=== PATIENT | female | born 1995 | race Caucasian/White ===

== ENCOUNTER 2020-02-27 01:03 | Emergency (ER) | payer OTHER ==
--- NOTE | 2020-02-27 01:07 | ED Physician Documentation ---
History of Present Illness - Stated complaint Stated Complaint: ABD PX - History obtained from History obtained from: Patient (Patient is a 24-year-old female with a chief complaint of right flank pain and some dysuria and hematuria and she thinks she has a kidney stone denies any other complaints.) Review of Systems Constitutional: reports: Reviewed and negative Eyes: reports: Reviewed and negative Ears: reports: Reviewed and negative Nose: reports: Reviewed and negative Throat: reports: Reviewed and negative Cardiac: reports: Reviewed and negative Respiratory: reports: Reviewed and negative GI: reports: Reviewed and negative : reports: Dysuria, Frequency, Hematuria Skin: reports: Reviewed and negative Musculoskeletal: reports: Reviewed and negative Neurologic: reports: Reviewed and negative Psychiatric: reports: Reviewed and negative Endocrine: reports: Reviewed and negative Immunocompromised: reports: Reviewed and negative PD PAST MEDICAL HISTORY - Present Medications Home Medications: Ambulatory Orders Medication Instructions Recorded Confirmed Cephalexin [Keflex] 500 mg PO BID 5 Days #10 capsule 02/27/20 Phenazopyridine [Pyridium] 100 mg PO TID PRN #6 tablet 02/27/20 - Allergies Allergies/Adverse Reactions: Allergies Allergy/AdvReac Type Severity Reaction Status Date / Time No Known Drug Allergies Allergy Verified 02/27/20 01:14 PD ED PE NORMAL - Vitals Vital signs reviewed: Yes - General General: Alert and oriented X 3, No acute distress, Well developed/nourished - HEENT HEENT: PERRL - Neck Neck: Supple, no meningeal sign - Cardiac Cardiac: RRR, No murmur, Strong equal pulses - Respiratory Respiratory: No respiratory distress, Clear bilaterally - Abdomen Abdomen: Normal bowel sounds, Soft, Non tender, Non distended, No organomegaly, Other (Suprapubic tenderness to palpation) - Derm Derm: Warm and dry - Extremities Extremities: No deformity - Neuro Neuro: Alert and oriented X 3 - Psych Psych: Normal mood, Normal affect Results - Vitals Vitals: Vital Signs - 24 hr 02/27/20 02/27/20 02/27/20 01:12 02:01 02:28 Temperature 37.2 C 37.1 C Heart Rate 96 88 87 Respiratory 18 15 15 Rate Blood Pressure 135/68 H 130/78 122/74 O2 Saturation 100 100 100 02/27/20 03:25 Temperature 36.6 C Heart Rate 81 Respiratory 18 Rate Blood Pressure 112/57 L O2 Saturation 100 Oxygen O2 Source Room air - Labs Labs: Laboratory Tests 02/27/20 02/27/20 02/27/20 01:14 01:38 01:38 WBC 14.4 H RBC 4.34 Hgb 13.4 Hct 38.6 MCV 88.9 MCH 30.9 MCHC 34.7 RDW 12.3 Plt Count 288 MPV 10.7 Neut # (Auto) 10.7 H Lymph # (Auto) 2.3 [facility] # (Auto) 1.0 Eos # (Auto) 0.2 Baso # (Auto) 0.1 Absolute Nucleated RBC 0.00 Nucleated RBC % 0.0 PT 11.1 INR 1.0 APTT 27.0 Sodium Potassium Chloride Carbon Dioxide Anion Gap BUN Creatinine Estimated GFR (MDRD) Glucose Lactic Acid Calcium Total Bilirubin AST ALT Alkaline Phosphatase Total Protein Albumin Globulin Albumin/Globulin Ratio Lipase Urine Color YELLOW Urine Clarity CLEAR Urine pH 7.0 Ur Specific [place] 1.020 Urine Protein 100 H Urine Glucose (UA) NEGATIVE Urine Ketones NEGATIVE Urine Occult Blood LARGE H Urine Nitrite NEGATIVE Urine Bilirubin NEGATIVE Urine Urobilinogen 0.2 (NORMAL) Ur Leukocyte Esterase TRACE H Urine RBC 11-25 H Urine WBC 4-5 Ur Squamous Epith Cells RARE Squamous Urine Bacteria Rare Ur Microscopic Review INDICATED Urine Culture Comments INDICATED Urine HCG, Qual NEGATIVE 02/27/20 02/27/20 01:38 01:38 WBC RBC Hgb Hct MCV MCH MCHC RDW Plt Count MPV Neut # (Auto) Lymph # (Auto) [facility] # (Auto) Eos # (Auto) Baso # (Auto) Absolute Nucleated RBC Nucleated RBC % PT INR APTT Sodium 136 Potassium 3.8 Chloride 103 Carbon Dioxide 23 Anion Gap 10.0 BUN 12 Creatinine 0.6 Estimated GFR (MDRD) 123 Glucose 122 H Lactic Acid 1.1 Calcium 8.8 Total Bilirubin 0.4 AST 15 ALT 18 Alkaline Phosphatase 80 Total Protein 7.2 Albumin 4.4 Globulin 2.8 Albumin/Globulin Ratio 1.6 Lipase 24 Urine Color Urine Clarity Urine pH Ur Specific [place] Urine Protein Urine Glucose (UA) Urine Ketones Urine Occult Blood Urine Nitrite Urine Bilirubin Urine Urobilinogen Ur Leukocyte Esterase Urine RBC Urine WBC Ur Squamous Epith Cells Urine Bacteria Ur Microscopic Review Urine Culture Comments Urine HCG, Qual PD MEDICAL DECISION MAKING - ED course Complexity details: reviewed results, re-evaluated patient, considered differential (Nephrolithiasis, pyelonephritis, cystitis, appendicitis), d/w patient, d/w family, other (ct shows cystitis, no signs of appendicits or nephrolithiasis. will treat with kefle and phenazopyridine.) Departure - Departure Disposition: 01 Home, Self Care Clinical Impression: Cystitis Condition: Stable Instructions: ED Infec Bladder Female Ch Follow-Up: your, doctor [Other] - Tomorrow Prescriptions: Cephalexin [Keflex] 500 mg PO BID 5 Days #10 capsule Phenazopyridine [Pyridium] 100 mg PO TID PRN #6 tablet PRN Reason: Bladder Spasms Comments: Hydrate well, take Keflex and phenazopyridine as directed. Follow-up with your primary care provider this week. Discharge Date/Time: 02/27/20 03:32
[2020-02-27] MEDS ORDERED: ONDANSETRON 4 MG/2 ML VIAL IVP STA (01:21)
[2020-02-27] MEDS ORDERED: MORPHINE 2 MG/ML CARPUJECT IVP STA (01:21)
[2020-02-27] MEDS ORDERED: SODIUM CHLORIDE 0.9% 1,000 ML IV STA (01:21)
[2020-02-27 01:30] LABS: BILIRUBIN,URINE NEGATIVE (NEGATIVE); GLUCOSE, URINE (UA) NEGATIVE (NEGATIVE); KETONES,URINE (UA) NEGATIVE (NEGATIVE); LEUKOCYTE ESTERASE, URINE TRACE (NEGATIVE); NITRITE,URINE NEGATIVE (NEGATIVE); OCCULT BLOOD,URINE LARGE (NEGATIVE); PROTEIN,URINE 100 mg/dL (NEGATIVE); UROBILINOGEN,URINE 0.2 (NORMAL) E.U./dL (NORMAL)
[2020-02-27 01:45] LABS: CLARITY,URINE CLEAR (CLEAR); HCG UR QUAL NEGATIVE
[2020-02-27 01:46] LABS: BASOPHILS # (AUTO) 0.1 10^3/uL (0.0-0.1); BASOPHILS % (AUTO) 0.4 %; EOSINOPHILS # (AUTO) 0.2 10^3/uL (0.0-0.7); EOSINOPHILS % (AUTO) 1.5 %; HGB - HEMOGLOBIN 13.4 g/dL (12.0-16.0); LYMPHOCYTES # (AUTO) 2.3 10^3/uL (1.5-3.5); LYMPHOCYTES % (AUTO) 16.1 %; MEAN CORPUSCULAR HEMOGLOBIN 30.9 pg (27.0-31.0); MEAN CORPUSCULAR HGB CONC 34.7 g/dL (32.0-36.0); MEAN CORPUSCULAR VOLUME 88.9 fL (81.0-99.0); MEAN PLATELET VOLUME 10.7 fL (7.9-10.8); NEUTROPHILS # (AUTO) 10.7 10^3/uL (1.5-6.6); NEUTROPHILS % (AUTO) 74.4 %; PLT - PLATELET COUNT 288 10^3/uL (130-450); RED BLOOD COUNT 4.34 10^6/uL (4.20-5.40); RED CELL DISTRIBUTION WIDTH 12.3 % (12.0-15.0); WHITE BLOOD COUNT 14.4 x10^3/uL (4.8-10.8)
[2020-02-27 01:51] LABS: BACTERIA,URINE Rare /HPF (None Seen); SQUAMOUS EPITHELIAL CELL,UR RARE Squamous (<= Few)
[2020-02-27 01:53] LABS: PT - PROTHROMBIN TIME 11.1 secs (9.9-12.6)
[2020-02-27 01:59] LABS: ALBUMIN 4.4 g/dL (3.2-5.5); ALBUMIN/GLOBULIN RATIO 1.6 (1.0-2.2); BILIRUBIN,TOTAL 0.4 mg/dL (0.2-1.0); CALCIUM 8.8 mg/dL (8.5-10.3); CREATININE 0.6 mg/dL (0.4-1.0); TOTAL PROTEIN 7.2 g/dL (6.7-8.2)
[2020-02-27] MEDS ORDERED: IOVERSOL 320 100 ML VIAL IVP ONE ×2 (02:31→02:54)
[2020-02-27] MEDS ORDERED: cephALEXin 250 MG CAPSULE PO STA (03:14)
[2020-02-27] MEDS ORDERED: PHENAZOPYRIDINE 100 MG TABLET PO STA (03:14)
[2020-02-27 03:35] VITALS: BP 112/57
--- NOTE | 2020-02-27 08:07 | CT Report ---
PROCEDURE: Abdomen/Pelvis W INDICATIONS: RLQ ABD PAIN CONTRAST: IV CONTRAST: Optiray 320 ml: 100 PO CONTRAST: *NO PO CONTRAST TECHNIQUE: After the administration of oral and intravenous contrast, 5 mm thick sections acquired from the diap hragms to the symphysis. 5 mm thick coronal and sagittal reformats were acquired. For radiation dos e reduction, the following was used: automated exposure control, adjustment of mA and/or kV accordin g to patient size. COMPARISON: None. FINDINGS: Image quality: Excellent. ABDOMEN: Lung bases: Lung bases are clear. Heart size is normal. Solid organs: Liver and spleen are normal in size and enhancement. Gallbladder is unremarkable Zackery iary system is non dilated. Pancreas enhances normally. No adrenal nodules. Kidneys demonstrate no rmal size and enhancement, without hydronephrosis. Peritoneum and bowel: Bowel loops demonstrate normal wall thickness and caliber. No free fluid or a ir. Moderate stool without obstruction. Nodes and vessels: No retroperitoneal or mesenteric adenopathy by size criteria. Aorta and inferior vena cava are normal in size. Miscellaneous: No ventral hernias. PELVIS: Genitourinary: Bladder wall is incompletely distended and demonstrates diffuse thickening. There is a 2.0 cm right adnexal low-attenuation focus. Miscellaneous: No inguinal hernias or adenopathy. Bones: No suspicious bony lesions. No vertebral body compression fractures. IMPRESSION: 1. Mild bladder wall thickening possibly secondary to incomplete distention. However, recommend corre lation of potential cystitis which can have a similar imaging appearance. 2. Right adnexal follicle versus cyst. The above findings are concordant with preliminary report. Reviewed by: Anai Marques MD on 02/27/2020 8:06 AM PDT Approved by: Anai Marques MD on 02/27/2020 8:06 AM PDT Station ID: [id number]
== END 2020-02-27 03:32 | disposition home or self-care (01) ==
LOC: ED 01:03
DX: N30.91 Cystitis, unspecified with hematuria (principal)
CPT/HCPCS: 36415; 74177; 80053; 81001; 81025; 83605; 83690; 85025; 85610; 85730; 87077; 87086; 87181; 96361; 96374; 96375; 99283; 99284; A9270; Q9967; 81003

== ENCOUNTER 2020-08-24 15:18 | Outpatient (CLI) | payer OTHER ==
[2020-08-24 17:04] LABS: HGB - HEMOGLOBIN 11.6 g/dL (12.0-16.0); MEAN CORPUSCULAR HEMOGLOBIN 30.4 pg (27.0-31.0); MEAN CORPUSCULAR HGB CONC 33.8 g/dL (32.0-36.0); MEAN PLATELET VOLUME 10.3 fL (7.9-10.8); RED BLOOD COUNT 3.81 10^6/uL (4.20-5.40); RED CELL DISTRIBUTION WIDTH 12.5 % (12.0-15.0); WHITE BLOOD COUNT 11.7 x10^3/uL (4.8-10.8)
== END 2020-08-24 15:19 | disposition home or self-care (01) ==
LOC: LAB 15:18
PROVIDERS: ATTEND Nurse Practitioner Obstetrics & Gynecology
DX: Z36.89 Encounter for other specified antenatal screening (principal)
CPT/HCPCS: 36415; 82950; 85027

== ENCOUNTER 2020-09-07 13:05 | Outpatient (CLI) | payer OTHER | END 2020-09-07 13:06 | disposition home or self-care (01) | LOC: LAB 13:05 | PROVIDERS: ATTEND Nurse Practitioner Obstetrics & Gynecology | DX: O99.810 Abnormal glucose complicating pregnancy (principal) | CPT/HCPCS: 36415; 82951; 82952 ==

== ENCOUNTER 2020-09-24 16:57 | Outpatient (CLI) | payer OTHER ==
--- NOTE | 2020-09-25 15:03 | Ultrasound Report ---
PROCEDURE: OB F/U or Repeat INDICATIONS: JUVENILE RHEUMATOID ARTHRITIS, SUPER OF PREGN OUTSIDE/PRIOR DATING DATA: Last menstrual period (LMP): Unknown. LMP-based estimated date of delivery (ROMY): Not applicable. First dating scan (date and location): 06/29/2020. Estimated date of delivery (ROMY) from first dating scan: 11/16/2020 (provider stated). TECHNIQUE: Real-time scanning was performed of the fetus, with image documentation and biometric measurements. Endovaginal scanning: Not performed COMPARISON: 06/29/2020 and 07/06/2020 FINDINGS: General: A single living intrauterine gestation is present. Presentation: Vertex Placenta: Placental position is anterior, without previa. Amniotic fluid index: 10.5 cm, 14th percentile for gestational age. Largest vertical pocket measure d 5.1 cm. heart rate: 149 beats per minute. Maternal cervical canal: Appears visibly closed. biometrics: Biparietal diameter: 8.5 cm, correlating with 34 weeks and 4 days Head circumference: 30.9 cm, correlating with 34 weeks and 4 days Abdominal circumference: 30.0 cm, correlating with 34 weeks and 0 days Femur length: 6.0 cm, correlating with 31 weeks and 2 days Estimated gestational age from initial scan: 32 weeks and 3 days. Composite gestational age from present scan: 33 weeks and 4 days Estimated weight and percentile: 2163 [address] which [address] the fetus within the 68th percentile for g estational age. Measurement variability in biometric dating: +/- 10 days from 12-20 weeks gestation, +/- 2 weeks from 20-30 weeks gestation, +/- 3 weeks at 30 weeks gestation or more. Other: Limited visualization of anatomic structures appear grossly normal. Incidental note of f etal motion, tone, and breathing motion. IMPRESSION: Single living intrauterine gestation with estimated sonographic gestational age of approximately 33 w eeks and 4 days. Expected interval growth has occurred. Estimated weight of 2163 g which [address] the fetus within the 68th percentile for gestational age. Four-quadrant PATRICIA measuring 10.5 cm, correlating with the 14th percentile for gestational age. Larges t vertical pocket measured 5.1 cm. Reviewed by: Zac Douglas MD on 09/25/2020 3:01 PM PST Approved by: Zac Douglas MD on 09/25/2020 3:01 PM PST Station ID: [id number]
== END 2020-09-24 16:58 | disposition home or self-care (01) ==
LOC: DI 16:57
PROVIDERS: ATTEND Obstetrics & Gynecology
DX: O99.891 Other specified diseases and conditions complicating pregnancy (principal); M08.00 Unspecified juvenile rheumatoid arthritis of unspecified site; Z3A.33 33 weeks gestation of pregnancy

== ENCOUNTER 2020-10-19 08:00 | Outpatient (CLI) | payer OTHER | END 2020-10-19 23:59 | disposition home or self-care (01) | LOC: LAB.R 08:00 | PROVIDERS: ATTEND Nurse Practitioner Obstetrics & Gynecology | DX: Z36.85 Encounter for antenatal screening for Streptococcus B (principal) | CPT/HCPCS: 87797 ==

== ENCOUNTER 2020-10-22 17:08 | Outpatient (CLI) | payer OTHER ==
--- NOTE | 2020-10-22 21:04 | Ultrasound Report ---
PROCEDURE: OB F/U or Repeat INDICATIONS: JUVENILE RHEUMATOID ARTHRITIS, SUPERVISION OF PREG OUTSIDE/PRIOR DATING DATA: Last menstrual period (LMP): Unknown. LMP-based estimated date of delivery (ROMY): Not applicable. First dating scan (date and location): 06/29/2020. Estimated date of delivery (ROMY) from first dating scan: 11/16/20. TECHNIQUE: Real-time scanning was performed of the fetus, with image documentation and biometric measurements. Endovaginal scanning: Not indicated COMPARISON: 09/24/2020 and 07/06/2020. FINDINGS: General: A single living intrauterine gestation is present. Presentation: Vertex Placenta: Placental position is anterior, without previa. Amniotic fluid index: 13 cm, normal for gestational age. heart rate: 139 beats per minute. Maternal cervical canal: Closed-end grossly normal in length. Normal length is 2.5 cm or more. biometrics: Biparietal diameter: 8.5 cm, 35 weeks, 5 days Head circumference: 32.25 cm, 36 weeks, 3 days Abdominal circumference: 32.8 cm, 36 weeks, 5 days Femur length: 6.8 cm, 35 weeks, 0 day Estimated gestational age from initial scan: 36 weeks, 3 days Composite gestational age from present scan: 36 weeks, 0 day Estimated weight and percentile: 2861 g, 45.2%. Measurement variability in biometric dating: +/- 10 days from 12-20 weeks gestation, +/- 2 weeks from 20-30 weeks gestation, +/- 3 weeks at 30 weeks gestation or more. Other: chest, stomach, bilateral kidneys and urinary bladder are visualized and are within norm al limits. IMPRESSION: 1. Single live intrauterine with fetus in vertex presentation. heart rate is 139 bpm. Normal amount of amniotic fluid. Estimated weight is at 45.2 percentile. Reviewed by: Gray Griffiths MD on 10/22/2020 9:02 PM PST Approved by: Gray Griffiths MD on 10/22/2020 9:02 PM PST Station ID: [id number]
== END 2020-10-22 17:09 | disposition home or self-care (01) ==
LOC: DI 17:08
PROVIDERS: ATTEND Nurse Practitioner Obstetrics & Gynecology
DX: O99.891 Other specified diseases and conditions complicating pregnancy (principal); M08.00 Unspecified juvenile rheumatoid arthritis of unspecified site; Z3A.36 36 weeks gestation of pregnancy

== ENCOUNTER 2020-11-23 09:53 | Inpatient (IN) | payer OTHER ==
[2020-11-23] MEDS ORDERED: miSOPROStoL 200 MCG TABLET BC PRN (10:37)
[2020-11-23] MEDS ORDERED: OXYTOCIN/SODIUM CHLORIDE 500 ML IV PRN (10:37)
[2020-11-23] MEDS ORDERED: METHYLERGONOVINE 0.2 MG/ML VIAL IM PRN (10:37)
[2020-11-23] MEDS ORDERED: SODIUM CHLORIDE FLUSH 0.9% 10 ML SYRINGE IVP PRN (10:37)
[2020-11-23] MEDS ORDERED: LIDOCAINE-MPF 1% 30 ML VIAL ID PRN (10:37)
[2020-11-23] MEDS ORDERED: CARBOPROST TROMETHAMINE 250 MCG/ML AMP IM PRN (10:37)
[2020-11-23] MEDS ORDERED: TRANEXAMIC ACID IN NACL 1,000 MG/100 ML BAG IV PRN (10:37)
[2020-11-23] MEDS ORDERED: OXYTOCIN 10 UNIT/ML VIAL IM PRN (10:37)
--- NOTE | 2020-11-23 10:41 | HISTORY & PHYSICAL EXAMINATION ---
Admit History - Visit Reason Visit Reason: Other - : 1 Parity: 0 Premature: 0 Ectopic: 0 : 0 Care: positive: [facility] Risk/History: positive: None Complications This : positive: Other Smoking Status: Never smoker - Mother's Labs Mother's Blood Type: positive: A Mother's RH: positive: Positive GBS: positive: Group B Step Negative Rubella Status: positive: Immune Meds/Allgy - Home Medications Home Medications: Ambulatory Orders Medication Instructions Recorded Confirmed Phenazopyridine [Pyridium] 100 mg PO TID PRN #6 tablet 02/27/20 cephALEXin [Keflex] 500 mg PO BID 5 Days #10 capsule 02/27/20 - Allergies Allergies/Adverse Reactions: Allergies Allergy/AdvReac Type Severity Reaction Status Date / Time No Known Drug Allergies Allergy Verified 02/27/20 01:14 Review of Systems - Constitutional Constitutional: denies: Fatigue, Fever, Chills, Malaise - Eyes Eyes: denies: Blurred vision, Spots in vision, Dipolpia - Cardiovascular Cariovascular: denies: Irregular heart rate, Palpitations, Chest pain, Edema - Respiratory Respiratory: denies: Cough, SOB at rest - Gastrointestinal Gastrointestinal: denies: Change in bowel habits - Integumentary Integumentary: denies: Rash, Pruritis - Neurological Neurological: denies: Headache Physical - Abdominal Exam Contraction Frequency (min/apart): occasional Contraction Intensity: positive: Mild Uterine Resting Tone: positive: Soft - Monitoring Heart Rate Baseline: 135 Strip Review: positive: Category I - Presentation Presentation: positive: Vertex - Vaginal Exam Membranes: positive: Membranes intact - Speculum Exam Speculum Exam Performed: positive: No Plan for Labor - Plan For Labor I expect patient to be DC'd or transferred within 96 hours.: Yes Plan for Labor: HPI: Nemo is a 25yo @ 41.0wks gestation by 11.2 wk U/S who presents for medical induction of labor secondary to postdates . She has been a patient of [facility] since her transfer of care from [facility] at 24wks gestation. She has had consistent care throughout the duration of her which has been complicated by her hx of juvenile arthritis and impaired 1 hour GTT. She has received serial growth ultrasounds since 32wks gestation which have all remained WNL. Her 1 hour GTT was elevated however her 3 hour GTT was WNL. Upon arrival she reports some mild contractions last night but after getting up and walking around they stopped. She denies vaginal bleeding or leakage of fluid and reports +FM. She is supported by her mom at the time of delivery secondary to her partner Saul being deployed. She will be admitted to [facility] for medical induction labor. Dating criteria: LMP: unknown Initial US: @ 11.2wks gestation dates Serial exams - agree Medications: PNV Allergies: NKDA OB HX: G1: Current PMHx: Juvenile rheumatoid arthritis Surgical Hx: Knee surgery (2013); [place] Teeth (2011) Social Hx: Never smoker. No ETOH or IVDA. Family Hx: Diabetes - MGM, MGF; Asthma- mother; COPD- MGM course: Initial U/S: 05/01/2020 @ 11.2wks gestation dates A pos/Rubella immune VZV: immune Genetic testing: SMA negative Hx juvenile rheumatoid arthiritis (no flares, not on medication) -growth ultrasound @ 32wks WNL (see below) FAS: WNL with the exception of poor visualization of spine and umbilical cord. Left lateral placenta without previa. Size c/w dating. F/u WNL. Normal spine and 3VC. 32wk growth secondary to juvenile rheumatoid arthritis - PATRICIA WNL; Growth WNL EFW 68%tile 36wk growth secondary to JRA -PATRICIA WNL. EFW 42.5%tile Glucola: Early 1hr GTT secondary to maternal obesity (157) with 3 hour GTT WNL; 28wk 1 hour GTT elevated (164), 3hr GTT WNL (76, 161, 154, 127) Influenza: 06/04/2020 TDAP 09/07/2019 GBS at 36.0 weeks- neg HSV: denies in self and partner Breast pump Rx provided MOD: Anticipate ; Saul is deployed and she will have her mom with her for support at time of delivery; expecting GIRL (Krishan); desires epidural pp contraception: wants IUD. [place] pap: 05/01/2020 WNL Physical Exam: Heart RRR w/o M/G/R Lungs CTAB Abdomen gravid, soft, nontender FHR baseline 135, moderate variability, + accels, no decels Contractions -irregular, inconsistent and mild SVE deferred at this time Bilateral LE's trace edema Mood is good Assessment: 25yo @ 41.0wks gestation Postdates GBS neg FHR Category I Plan: Admit for pre-induction cervical ripening with 50mcg BC misoprostol q 4 hours Continuous monitoring Encouraged ambulation and and frequent position changes. Jacuzzi PRN. Nitrous oxide PRN. Epidural per maternal request. Anticipate . Pt verbalized understanding and agrees to above plan. She denies further questions or concerns at this time.
[2020-11-23 11:21] LABS: BASOPHILS % (AUTO) 0.3 %; EOSINOPHILS # (AUTO) 0.1 10^3/uL (0.0-0.7); HCT - HEMATOCRIT 34.2 % (37.0-47.0); HGB - HEMOGLOBIN 11.6 g/dL (12.0-16.0); LYMPHOCYTES # (AUTO) 1.9 10^3/uL (1.5-3.5); MEAN CORPUSCULAR HEMOGLOBIN 29.1 pg (27.0-31.0); MEAN CORPUSCULAR HGB CONC 33.9 g/dL (32.0-36.0); MEAN CORPUSCULAR VOLUME 85.9 fL (81.0-99.0); MEAN PLATELET VOLUME 11.2 fL (7.9-10.8); MONOCYTES # (AUTO) 0.7 10^3/uL (0.0-1.0); MONOCYTES % (AUTO) 6.6 %; NEUTROPHILS # (AUTO) 7.6 10^3/uL (1.5-6.6); NEUTROPHILS % (AUTO) 73.6 %; PLT - PLATELET COUNT 253 10^3/uL (130-450); RED BLOOD COUNT 3.98 10^6/uL (4.20-5.40); RED CELL DISTRIBUTION WIDTH 12.9 % (12.0-15.0); WHITE BLOOD COUNT 10.4 x10^3/uL (4.8-10.8)
[2020-11-23] MEDS: miSOPROStoL 100 MCG TABLET BC SCH ×2 (11:29→15:39)
[2020-11-23] MEDS ORDERED: SODIUM CHLORIDE FLUSH 0.9% 10 ML SYRINGE IVP SCH (17:00)
[2020-11-23] MEDS ORDERED: ONDANSETRON 4 MG/2 ML VIAL IVP PRN ×2 (17:56→20:16)
[2020-11-23] MEDS: LACTATED RINGERS 1,000 ML IV SCH ×2 (19:03→23:59)
--- NOTE | 2020-11-23 19:44 | PROVIDER PROGRESS NOTE ---
Labor Progress Note - Uterine Monitoring Uterine Monitoring Mode: positive: External toco Contraction Frequency (min/apart): 2-3 Contraction Intensity: positive: Mild to moderate Uterine Resting Tone: positive: Soft - Monitoring Monitor Mode: positive: External ultrasound Heart Rate Baseline: 150 Heart Rate Variability: positive: Moderate (6-25 bmp) Accelerations: positive: Present, 15x15 Decelerations: positive: None Strip Review: positive: Category I - Vaginal Exam Dilation (in cm): 2 Effacement (%): 90 Station: -2 Cervical Position: Anterior - Labor Progress Note Labor Progress Note/Additional Text: S: Feeling increased cramping with contractions. She is coping well. She states she lost her mucus plug in the bathroom recently which she felt excited about and reassured her that the process was moving forward. Her mom is supportive at the bedside. Mood is good. O: FHR baseline 150s, moderate variability, + accels, no decels at present. Previously noted occasional subtle late decelerations and a fluid bolus was initiated and decelerations are no longer present. Contractions palpate mild-moderate every 2-3 minutes with soft resting tone SVE 2/-2, vertex. Following SVE patient stood up at the bedside at experienced SROM @ 1935 which was noted to be a moderate amount of light meconium stained amniotic fluid A: 25yo @ 41.0wks gestation Postdates Early labor GBS neg Light meconium stained amniotic fluid P: D/c misoprostol Expectant management x 4 hours RT will be called to be present at the bedside for delivery secondary to light meconium stained amniotic fluid. Repeat SVE x 4 hours and if no cervical change noted, will initiate pitocin for labor augmentation. Continuous monitoring Jacuzzi PRN. Nitrous oxide PRN. Epidural per maternal request. Anticipate . Pt, mother, and labor RN at the bedside verbalized understanding and agree to above plan. They deny further questions or concerns at this time.
[2020-11-23] MEDS ORDERED: ROPIVACAINE 0.2% 200 MG/100 ML BAG EP ONE (20:06)
[2020-11-23] MEDS ORDERED: ROPIVACAINE 0.2% 200 MG/100 ML BAG EP PRN (20:16)
[2020-11-23] MEDS ORDERED: METOCLOPRAMIDE 10 MG/2 ML VIAL IVP PRN (20:16)
[2020-11-23] MEDS ORDERED: NALBUPHINE 10 MG/ML AMP IVP PRN (20:16)
[2020-11-23] MEDS ORDERED: NALOXONE 0.4 MG/ML VIAL IVP PRN (20:16)
[2020-11-23] MEDS ORDERED: ePHEDrine 50 MG/ML VIAL IVP PRN (20:16)
[2020-11-23] MEDS ORDERED: diphenhydrAMINE INJ 50 MG/ML VIAL IVP PRN (20:16)
--- NOTE | 2020-11-23 20:16 | ANESTHESIA ---
Pre-Anesthesia VS, & Labs - Diagnosis term labor, IUP - Procedure epidural for Vital Signs: Temp Pulse Resp BP Pulse Ox 36.6 C 78 18 122/75 11/23/20 11:51 11/23/20 10:33 11/23/20 10:33 11/23/20 10:33 Height: 5 ft 4 in Weight (kg): 87.997 kg Body Mass Index: 33.3 BMI Classification: Obese - NPO Last Food Intake: t/o day - Is Patient ?: Yes - Lab Results Current Lab Results: Laboratory Tests 11/23/20 11:10: WBC 10.4, RBC 3.98 L, Hgb 11.6 L, Hct 34.2 L, MCV 85.9, MCH 29.1, MCHC 33.9, RDW 12.9, Plt Count 253, MPV 11.2 H, Neut # (Auto) 7.6 H, Lymph # (Auto) 1.9, [place] # (Auto) 0.7, Eos # (Auto) 0.1, Baso # (Auto) 0.0, Absolute Nucleated RBC 0.00, Nucleated RBC % 0.0 11/23/20 10:39: Blood Type A POSITIVE, Antibody Screen NEGATIVE Lab results reviewed: Yes Fish Bones: 11/23/20 11:10 Home Medications and Allergies Active Medications Carboprost Tromethamine (Carboprost Tromethamine 250 Mcg/Ml Amp) 250 mcg IM Q15M PRN PRN Reason: Step 4: Hemorrhage protocol Stop: 11/28/20 10:38 Oxytocin/Sodium Chloride (Pitocin/Sodium Chloride) 500 mls @ 999 mls/hr IV PRN PRN; Protocol PRN Reason: POST- HEMORR PREVENTION Stop: 11/28/20 10:38 Tranexamic Acid (Tranexamic 1,000 Mg/100ml-Nacl) 1,000 mg in 100 mls @ 600 mls/hr IV .ONCE PRN PRN Reason: EBL >1200mL and within 3hr Stop: 11/28/20 10:38 Lactated Ringer's (Lr) 1,000 mls @ 100 mls/hr IV .Q10H JUAN JOSÉ Last Admin: 11/23/20 19:03 Dose: 500 mls/hr Documented by: Lidocaine HCl (Lidocaine-Mpf 1% 30 Ml Vial) 30 ml ID .ONCE PRN PRN Reason: PERINEAL REPAIR Stop: 11/28/20 10:38 Methylergonovine Maleate (Methylergonovine 0.2 Mg/Ml Vial) 0.2 mg IM .ONCE PRN PRN Reason: Step 2: Hemorrhage protocol Stop: 11/28/20 10:38 Misoprostol (Misoprostol 200 Mcg Tablet) 800 mcg BC .ONCE PRN PRN Reason: Step 3: Hemorrhage protocol Stop: 11/28/20 10:38 Misoprostol (Misoprostol 100 Mcg Tablet) 50 mcg BC Q4HR JUAN JOSÉ Last Admin: 11/23/20 15:39 Dose: 50 mcg Documented by: Ondansetron HCl (Ondansetron 4 Mg/2 Ml Vial) 4 mg IVP Q4HR PRN PRN Reason: Nausea / Vomiting Oxytocin (Oxytocin 10 Unit/Ml Vial) 10 unit IM .ONCE PRN PRN Reason: Step one: If no IV access Stop: 11/28/20 10:38 Sodium Chloride (Sodium Chloride Flush 0.9% 10 Ml Syringe) 10 ml IVP 0100,0900,1700 [facility] Sodium Chloride (Sodium Chloride Flush 0.9% 10 Ml Syringe) 10 ml IVP PRN PRN PRN Reason: NEEDED PER PROVIDER ORDERS Allergies/Adverse Reactions: Allergies Allergy/AdvReac Type Severity Reaction Status Date / Time No Known Drug Allergies Allergy Verified 02/27/20 01:14 Anes History & Medical History - Anesthetic History Anesthesia Complications: reports: No previous complications Family history of Anesthesia Complications: Denies Family history of Malignant Hyperthermia: Denies - Medical History Cardiovascular: reports: None Pulmonary: reports: None Gastrointestinal: reports: None Urinary: reports: None Neuro: reports: None Musculoskeletal: reports: None, Other (RA @5 joints) Endocrine/Autoimmune: reports: None Blood Disorders: reports: None Skin: reports: None Smoking Status: Never smoker History of Cancer?: No - Surgical History Eyes Ears Nose Throat (EENT): reports: Tonsil/Adenoidectomy Orthopedic: reports: Other Other Past Surgical History: knee washout RA, Jaw washout RA - Obstetrical History : 1 Parity: 0 Events: reports: None Complications: reports: Other Exam General: Alert, Oriented x3, Cooperative Dental: WNL Mouth Openin Fingerbreadth Neck Mobility: Normal Mallampati classification: II Thyromental Distance: 4-6 cm Respiratory: No respiratory distress Cardiovascular: Regular rate Neurological: Normal gait, Normal speech Mental/Cognitive Status: Alert/Oriented X3, Normal for patient Cognitive Status: Within normal limits Plan Anesthesia Type: Epidural Consent for Procedure(s) Verified and Reviewed: Yes Code Status: Attempt Resuscitation ASA classification: 2-Mild systemic disease Is this case an emergency?: No
--- NOTE | 2020-11-24 00:59 | PROVIDER PROGRESS NOTE ---
Labor Progress Note - Uterine Monitoring Uterine Monitoring Mode: positive: External toco Contraction Frequency (min/apart): 2-4 Contraction Intensity: positive: Moderate Uterine Resting Tone: positive: Soft - Monitoring Monitor Mode: positive: External ultrasound Heart Rate Baseline: 130 Heart Rate Variability: positive: Moderate (6-25 bmp) Accelerations: positive: Absent Decelerations: positive: Late, Recurrent (>50% x20 min) Strip Review: positive: Category II - Vaginal Exam Dilation (in cm): 5 Effacement (%): 90 Station: 0 Cervical Position: Midposition - Labor Progress Note Labor Progress Note/Additional Text: S: Feeling comfortable in bed with epidural. Her mom is supportive at the bedside. Has been able to get some sleep since placement of epidural. She is aware of the heart rate decelerations and after our discussion she is comfortable with a delivery if that is what is indicated. O: FHR baseline 125, moderate variability, no accels, recurrent late decelerations Contractions palpate moderate every 2-4 minutes with soft resting tone SVE 5/90/0 SROM x 5.5hrs - light meconium noted A: 25yo @ 41.1.wks gestation Postdates GBS neg Light meconium FHR Category II P: Continuous monitoring 300cc IV fluid bolus completed Maintain epidural for pain management Reviewed potential delivery with pt and her mother secondary to recurrent late decelerations. Discussed risks vs benefits. At this time the status is reassuring secondary to moderate variability however we reviewed if decelerations continue to occur, and her cervical dilation does not progress then I will call the director transportation physician to present for evaluation and likely delivery. Pt and mother at the bedside voice understanding and pt voices willingness to proceed with delivery if needed. Repeat SVE in 2 hours and if no progress is made will consider initiation of pitocin if FHR Category I.
[2020-11-24] MEDS ORDERED: TERBUTALINE 1 MG/ML VIAL SUBQ ONE ×2 (01:56→02:01)
[2020-11-24] MEDS ORDERED: LIDOCAINE-MPF 2% 5 ML VIAL ONE (02:24)
[2020-11-24] MEDS ORDERED: fentaNYL 100 MCG/2 ML VIAL ONE (02:32)
[2020-11-24] MEDS ORDERED: OXYTOCIN 10 UNIT/ML VIAL ONE (02:38)
[2020-11-24] MEDS ORDERED: ROPIVACAINE 0.5% PF 20 ML AMPULE ONE (02:38)
[2020-11-24] MEDS ORDERED: ePHEDrine 50 MG/ML VIAL IVP PRN ×2 (02:47→03:13)
[2020-11-24] MEDS ORDERED: ONDANSETRON 4 MG/2 ML VIAL IVP PRN ×2 (02:47→03:13)
[2020-11-24] MEDS ORDERED: METOCLOPRAMIDE 10 MG/2 ML VIAL IVP PRN ×2 (02:47→03:13)
[2020-11-24] MEDS ORDERED: HYDROmorphone 0.5 MG/0.5 ML SYRINGE IVP PRN (02:47)
[2020-11-24] MEDS ORDERED: ATROPINE ABBOJECT 1 MG/10 ML SYRINGE IVP PRN (02:47)
[2020-11-24] MEDS ORDERED: NALOXONE 0.4 MG/ML VIAL IVP PRN ×2 (02:47→03:13)
[2020-11-24] MEDS ORDERED: MORPHINE 2 MG/ML CARPUJECT IVP PRN (02:47)
[2020-11-24] MEDS ORDERED: fentaNYL 100 MCG/2 ML VIAL IVP PRN (02:47)
[2020-11-24] MEDS ORDERED: PHENYLEPHRINE 10 MG/ML VIAL ONE (02:48)
[2020-11-24] MEDS ORDERED: LIDOCAINE 2%-EPI 1:100000 20 ML MDV ONE (02:50)
[2020-11-24] MEDS ORDERED: BUPIVACAINE 0.5% PF 30 ML VIAL ONE (02:50)
[2020-11-24] MEDS ORDERED: LIDOCAINE 2%-EPI 1:100000 20 ML MDV SUBQ ONE ×2 (02:59)
--- NOTE | 2020-11-24 02:59 | PROVIDER PROGRESS NOTE ---
Labor Progress Note - Uterine Monitoring Uterine Monitoring Mode: positive: External toco Contraction Frequency (min/apart): 2-4 Contraction Intensity: positive: Moderate Uterine Resting Tone: positive: Soft - Monitoring Monitor Mode: positive: External ultrasound Heart Rate Baseline: 145 Heart Rate Variability: positive: Moderate (6-25 bmp) Accelerations: positive: Absent Decelerations: positive: Late, Recurrent (>50% x20 min) - Vaginal Exam Dilation (in cm): 5 Effacement (%): 90 Station: 0 - Labor Progress Note Labor Progress Note/Additional Text: Secondary to continued, recurrent late decelerations pediatric surgeon physician notified of patient and status and agrees with recommendation to proceed with primary delivery secondary to intolerance of labor. Physician ordered to call the surgery team @ [phone] on 11/24/2020. Surgical team, anesthesia provider, and biofuels manager notified. Terbutaline 0.25mg administered. Abdomen washed with presurgical wipes. Patient rolled to operating room. Care handed to pediatric surgeon physician.
[2020-11-24] MEDS ORDERED: LACTATED RINGERS 1,000 ML IV SCH (03:00)
[2020-11-24] MEDS ORDERED: BUPIVACAINE 0.5% PF 30 ML VIAL INFIL ONE ×2 (03:00)
[2020-11-24] MEDS ORDERED: MORPHINE PF 5 MG/10 ML VIAL ONE (03:10)
[2020-11-24] MEDS ORDERED: diphenhydrAMINE INJ 50 MG/ML VIAL IVP PRN (03:13)
[2020-11-24] MEDS ORDERED: NALBUPHINE 10 MG/ML AMP IVP PRN (03:13)
[2020-11-24] MEDS ORDERED: MORPHINE PF 5 MG/10 ML VIAL EP ONE (03:13)
[2020-11-24] MEDS ORDERED: LACTATED RINGERS 1,000 ML IV ONE (03:30)
[2020-11-24] MEDS ORDERED: ceFAZolin 1 GM VIAL ONE (03:42)
--- NOTE | 2020-11-24 03:43 | ANESTHESIA POST OP EVALUATION ---
Anesthesia Post Eval - Post Anesthesia Eval Vitals: Last Vital Signs Temp 36.9 C 11/24/20 03:26 Pulse 112 H 11/24/20 03:26 Resp 14 11/24/20 03:26 BP 116/66 11/24/20 03:26 Pulse Ox 100 11/24/20 03:26 CV Function Including HR & BP: Stable Pain Control: Satisfactory Nausea & Vomiting: Negative Mental Status: Baseline Respiratory Status: Airway Patent Hydration Status: Satisfactory Anesthesia Complications: None
[2020-11-24] MEDS ORDERED: HYDROCORTISONE 1% CREAM 28 GM TUBE PR PRN (03:50)
[2020-11-24] MEDS ORDERED: WITCH HAZEL/GLYCERIN 1 PAD TOP PRN (03:50)
--- NOTE | 2020-11-24 04:06 | OPERATIVE REPORT ---
Operative Report - General Admit Date: 11/23/20 Procedure Date: 11/24/20 - Other Other Information/Narrative: Date of service: 11/24/2020 Preoperative diagnosis: intolerance of labor, intrauterine at 41w, meconium-stained fluid Postoperative diagnosis: same Procedure: section, primary low transverse Surgeon: Valentin Autocad Electrical Designer: CNShaye Barney needed to provide adequate retraction and expulsion to perform surgery Anesthesia: Epidural Estimated Blood Loss: 300cc IV Fluids: 1000cc Urine output: 150cc Counts: correct sponge and instrument Complications: none apparent Disposition: stable to recovery room Prophylaxis: SCD to bilateral lower extremities, Ancef 2g IV Specimens: Placenta to pathology, cord blood for typing Findings: Thick meconium. Liveborn female, apgars 8/9. Normal maternal anatomy. Counseling: Patient has been undergoing an induction of labor with the midwives for post-dates. I was alerted to repetitive late decelerations by CNM that were improving with intrauterine resuscitation. The CNM called a bit later saying that the decelerations were persistent and she would like to consider . She had described the procedure and recovery to patient. She had reviewed the risks of surgery with the patient who consented verbally to surgery. CNM brought the patient to the OR as the team was coming in. On my arrival the patient was on the monitor in the OR. Patient appeared to be starting a large deceleration with FHT trending downward from 150 and marked variability present. I made the decision to expedite the surgery as I felt that a prolonged bradycardia was imminent. Her franklin had been placed with her epidural placement. The CNM had taken care of her vaginal prep. Description of procedure: Patient's existing epidural was bolused. She was prepped and draped in the usual sterile fashion. A scalpel was used to make a Pfannenstiel skin incision 3 cm superior to the pubic symphysis. This was carried down to the fascia, which was nicked in the midline bilaterally. The fascial incision was extended laterally and slightly superiorly, bluntly. The fascia was bluntly and dissected off of the rectus. The peritoneum was bluntly entered. The peritoneum and rectus were stretched and room was adequate. A bladder retractor was placed. A scalpel was used to make a transverse incision in the lower uterine segment. The uterus was breeched with a finger. The uterine incision was opened bluntly by applying caudal and cranial traction. The membranes were ruptured with thick mec present. The surgeon's hand was placed in the uterine cavity and the head was elevated and then delivered with the assistance of fundal pressure. The umbilical cord was clamped x2 and cut and the baby was handed to the animal eviscerator in waiting. The placenta was delivered with external uterine massage. Curettage with a dry laparotomy did not yield any retained membranes. The uterine incision was closed with a running layer of 0 Vicryl. A second imbricating suture was performed. Palpation of the ovaries and fallopian tubes was normal. The uterine incision, rectus, and fascia were inspected with good hemostasis seen. The abdomen was copiously irrigated. The surgeon and the research program assistant changed their gloves. The peritoneum was marked with hemostats and closed 2-0 vicryl. The fascia was closed with a running layer of 0 Vicryl from end-to-end. The subcutaneous tissues were copiously irrigated and then closed with a running suture of 2-0 Vicryl. The skin was closed with 4-0 Monocryl in a subcuticular fashion. Dermabond was then applied. The subcutaneous tissues were infiltrated with a mix of lidocaine and marcaine. Fundal massage yielded a normal amount of blood and clot. Opening counts were not performed and an X-ray in the OR re vealed the absence of retained instruments or sponges. She was transported to the recovery room without difficulty.
[2020-11-24] MEDS: KETOROLAC 30 MG/ML VIAL IVP SCH ×4 (04:42→21:46)
--- NOTE | 2020-11-24 07:43 | XRAY Report ---
PROCEDURE: Abdomen 1 View X-Ray INDICATIONS: Status post section TECHNIQUE: 1 view of the abdomen were acquired. COMPARISON: 02/27/2020 CT abdomen and pelvis FINDINGS: Epidural catheter noted. No other radiopaque abnormality in the field of view to suggest a retained f oreign body. Normal bowel gas pattern. No abnormal abdominal or pelvic calcification. IMPRESSION: Epidural catheter noted. No other radiopaque abnormality to suggest a retained foreign body. Reviewed by: Ephraim Garcia MD on 11/24/2020 7:41 AM PDT Approved by: Ephraim Garcia MD on 11/24/2020 7:41 AM PDT Station ID: [id number]
[2020-11-24] MEDS: SIMETHICONE CHEW 80 MG TABLET PO PRN (08:02)
[2020-11-24] MEDS: DOCUSATE SODIUM 100 MG CAPSULE PO SCH ×2 (10:09→21:46)
[2020-11-24] MEDS: oxyCODONE 5 MG TABLET PO PRN (14:34)
[2020-11-24] MEDS: ACETAMINOPHEN 500 MG TABLET PO SCH (17:08)
[2020-11-25] MEDS: ACETAMINOPHEN 500 MG TABLET PO SCH ×3 (00:59→16:31)
[2020-11-25] MEDS: oxyCODONE 5 MG TABLET PO PRN ×6 (04:16→22:35)
[2020-11-25] MEDS: IBUPROFEN 600 MG TABLET PO SCH ×4 (04:17→22:35)
[2020-11-25] MEDS: SIMETHICONE CHEW 80 MG TABLET PO PRN ×2 (08:31→16:32)
[2020-11-25] MEDS: DOCUSATE SODIUM 100 MG CAPSULE PO SCH ×2 (08:31→22:34)
--- NOTE | 2020-11-25 18:24 | PROVIDER PROGRESS NOTE ---
Subjective - Subjective Subjective: S: Patient eating, urinating, ambulating, and well. No heavy bleeding or mood problems. Pain is under good control but is more sore today after a lot of ambulation. Passing some gas. O: AVSS Alert, smiling, no apparent distress Abd soft, nontender, non-distended Fundus nontender at umbilicus Incision c/d/i Trace lower extremity edema Impression and plan: 25yo P1 POD #1 s/p primary LTCS for NRFS, doing well. Plan for routine care, likely discharge home in am. Rh+, RI, , s/p Tdap Objective - Vital Signs/Intake & Output Intake & Output: Intake & Output 11/22/20 11/23/20 11/24/20 11/25/20 23:59 23:59 23:59 23:59 Intake Total 2540 Output Total 3125 Balance 2540 -3125 - Lab Results Fish Bones: 11/23/20 11:10 Other Labs: Lab Results x24hrs 11/23/20 Range/Units 19:30 Coronavirus (PCR) NEGATIVE
[2020-11-26] MEDS: ACETAMINOPHEN 500 MG TABLET PO SCH ×2 (03:05→11:32)
[2020-11-26] MEDS: oxyCODONE 5 MG TABLET PO PRN ×2 (03:19→09:23)
[2020-11-26] MEDS: IBUPROFEN 600 MG TABLET PO SCH ×2 (04:42→11:31)
[2020-11-26 08:45] VITALS: BP 118/71
[2020-11-26] MEDS: DOCUSATE SODIUM 100 MG CAPSULE PO SCH (09:23)
--- NOTE | 2020-11-26 11:13 | Discharge Plan ---
Discharge Plan Problem Reviewed?: Yes Disposition: Home, Self Care Condition: Good Prescriptions: Acetaminophen [Acetaminophen Extra Strength] 1,000 mg PO Q6H PRN #45 tablet PRN Reason: Pain Docusate Sodium 100Mg Capsule [Colace 100Mg Capsule] 100 mg PO BID PRN #30 cap PRN Reason: to soften stool Ibuprofen [Motrin] 600 mg PO Q6H PRN #30 tab PRN Reason: Pain oxyCODONE [Roxicodone] 2.5 - 5 mg PO Q4H PRN #20 tablet PRN Reason: Severe Pain Diet: Regular Activity Restrictions: See RN orders Shower Restrictions: No Driving Restrictions: Yes (not while on oxycodone) No Smoking: If you smoke, Please STOP! Call for help. Follow-up with: Jennifer Corley CNM, JOSHUA [Provider Admit Priv/Credential] - 1 Week
--- NOTE | 2020-11-26 11:27 | DISCHARGE SUMMARY ---
Physician: Darlene Hanson MD DATE OF ADMISSION: 11/23/2020 DATE OF DISCHARGE: 11/26/2020 ADMISSION DIAGNOSIS: Intrauterine at 41 weeks 0 days. DISCHARGE DIAGNOSES: 1. Status post primary low transverse section. 2. Nonreassuring surveillance. PROCEDURES: Primary 11/24/2020. HOSPITAL COURSE: The patient was admitted for a post dates induction of labor. She received misopro stol for induction. She began developing decelerations that at first were resolved with intrauterine resuscitation and then they were not. The patient required a that did become emergent whkelsie mendoza in the operating room due to change in heart rate tracing. This was uncomplicated. Her pos tpartum course was unremarkable. By day 2 she was requesting discharge home. She was eat ing, ambulating, urinating, and without difficulties. She did not have any problems wi th pain control, mood, or bleeding. DISCHARGE EXAMINATION: VITAL SIGNS: She was afebrile with normal vital signs. GENERAL: Alert and pleasant, in no apparent distress. ABDOMEN: Soft, nontender, nondistended. Fundus firm, nontender, and 1 cm below the umbilicus. Inci liudmila clean, dry, and intact without erythema or induration. EXTREMITIES: Lower extremities with trace lower extremity edema bilaterally. DISCHARGE DISPOSITION: Home. CONDITION: Good. Followup in 1 week with conveyor line bakery worker Jennifer Corley. PRECAUTIONS: Routine and postoperative precautions given. TD: 11/26/2020 11:25
--- NOTE | 2020-11-26 12:29 | Labor Flowsheet ---
Labor Flowsheet Datetime Report Generated by CPN: 11/26/2020 12:29 Datetime: 11/24/2020 03:59 Membranes Rupture Method: Spontaneous Amniotic Fluid Color: Light Meconium Amniotic Fluid Amount: Moderate Amniotic Fluid Odor: Normal Datetime: 11/24/2020 02:02 STAGE 2 Stage 2 Comments: To OR for Datetime: 11/24/2020 02:01 Patient Care Comments: abdominal prep for c/s being done by CNM Datetime: 11/24/2020 02:00 VITAL SIGNS NBP Sys/Lisa/Mean (mmHg): 118 : 75 : 85 Pulse: 134 LaborFlag: Labor Datetime: 11/24/2020 01:59 SpO2 (%): 100 Datetime: 11/24/2020 01:50 UTERINE ACTIVITY Monitor Mode: External Frequency (min): 1.5-3.5 Quality: Moderate Duration (sec): 40-70 Resting Tone (Palpate): Relaxed ASSESSMENT A Monitor Mode: External US FHR Baseline Rate : 150 Variability: Moderate 6-25 bpm Decelerations: Late; Variable; Prolonged Actions for Decelerations: Other Comments: called Datetime: 11/24/2020 01:23 Communication Comments: Dr Valentin call by Jennifer Barney Datetime: 11/24/2020 01:21 Patient Position/Activity: Right Lateral Datetime: 11/24/2020 01:00 Accelerations: 15X15 Datetime: 11/24/2020 00:46 Membranes Ruptured Date/Time: 11/23/2020 19:35 Datetime: 11/24/2020 00:45 Stage of : Labor Respirations: 16 Datetime: 11/24/2020 00:39 VAGINAL EXAM Dilatation (cm): 5.0 Effacement (%): 90 Station: 0 Exam by: Jennifer Barney Datetime: 11/24/2020 00:30 Pain Presence: None/Denies Anesthesia Level Check: T9 Datetime: 11/24/2020 00:18 Provider Reviewed Strip: Yes COMMUNICATION Communication: Call/Page Placed to Provider Datetime: 11/23/2020 23:51 Category: Category II Datetime: 11/23/2020 23:40 MEDICATIONS Antiemetics/Antacids: Zofran (mg) @ Datetime: 11/23/2020 23:30 Temperature (C): 36.7 Temperature Route: Oral PAIN Pain Scale: 0 Datetime: 11/23/2020 23:22 Monitor Interventions for FHR: Ultrasound Adjusted Datetime: 11/23/2020 22:54 Provider Notified (Name): Jennifer Barney Notification Reason: Status Update Datetime: 11/23/2020 22:03 I/O Interventions: Haro Cath Inserted Datetime: 11/23/2020 21:30 Monitor Interventions for UA: [place] Adjusted Datetime: 11/23/2020 21:13 ANESTHESIA Anesthesia Plans: Epidural Datetime: 11/23/2020 20:51 Epidural Procedure Other: Pump Started Datetime: 11/23/2020 20:40 Epidural Procedure: Cath Placed Datetime: 11/23/2020 20:21 PROCEDURE TIME OUT Procedure Verify: Correct Patient Identity; Correct Side and Site are Marked; Accurate Procedure Co nsent Form; Agreement on Procedure to be Done; Correct Patient Position Epidural Positioning: Sitting Datetime: 11/23/2020 20:02 PATIENT CARE Oxygen Method: Room Air Datetime: 11/23/2020 19:50 Anesthesia Comments: WAREHOUSE INVENTORY CLERK Craft at bedside Datetime: 11/23/2020 19:22 Cervix, Position: Anterior Datetime: 11/23/2020 19:01 Contraction Comments: pain a 4 with contractions Datetime: 11/23/2020 17:00 Pattern: Normal: <= 5 Contractions in 10 Minutes Datetime: 11/23/2020 16:57 Pain Assessment Comments: intermittent mild cramping in lower abd. Comfort Measures: Hot Shower/Tub/Spa Datetime: 11/23/2020 11:29 Cervical Ripening Agents: Cytotec @ Medication Comments: buccal
== END 2020-11-26 11:30 | disposition home or self-care (01) | DRG 788 ==
LOC: WFO 09:53 → FBP 09:59 → WFO 10:36 → FBP 10:37
PROVIDERS: ADMIT Nurse Practitioner Obstetrics & Gynecology; ATTEND Obstetrics & Gynecology
PROC: 10D00Z1 Extraction of Products of Conception, Low, Open Approach (ICD-10-PCS; principal; 2020-11-24 02:00)
DX: O48.0 Post-term pregnancy (principal); O76 Abnormality in fetal heart rate and rhythm complicating labor and delivery; Z37.0 Single live birth; O77.0 Labor and delivery complicated by meconium in amniotic fluid; O99.892 Other specified diseases and conditions complicating childbirth; M08.90 Juvenile arthritis, unspecified, unspecified site; Z3A.41 41 weeks gestation of pregnancy; Z20.822 Contact with and (suspected) exposure to COVID-19; Z87.891 Personal history of nicotine dependence
CPT/HCPCS: 74018; 85025; 86850; 86900; 86901; 87635; A9270; J2274; J7120

== ENCOUNTER 2021-07-21 16:15 | Emergency (ER) | payer OTHER ==
[2021-07-21 17:40] VITALS: BP 107/69
--- NOTE | 2021-07-21 18:06 | XRAY Report ---
PROCEDURE: Chest 1 View X-Ray INDICATIONS: chest pain TECHNIQUE: One view of the chest was acquired. COMPARISON: None FINDINGS: Surgical changes and devices: None. Lungs and pleura: No pleural effusions or pneumothorax. Lungs are clear. Mediastinum: Mediastinal contours appear normal. Heart size is normal. Bones and chest wall: No suspicious bony lesions. Overlying soft tissues appear unremarkable. IMPRESSION: No evidence acute pulmonary process. Reviewed by: Jackson Mcbride MD on 07/21/2021 6:05 PM [facility] Approved by: Jackson Mcbride MD on 07/21/2021 6:05 PM [facility] Station ID: [id number]
--- NOTE | 2021-07-21 18:30 | ED Physician Documentation ---
PD HPI CHEST PAIN - Stated complaint Stated Complaint: CHEST PX - Chief complaint Chief Complaint: Cardiac - History obtained from History obtained from: Patient - Additional information Additional information: Patient comes emergency department chief complaint of chest pain worse with deep breath that started this morning. She denies any cough or shortness of breath. No fevers. No lower extremity edema or calf pain. No history of young [place] or DVT in the family, except for her grandmother, who had DVTs in older age. She states the chest pain is right behind her left breast, and is also worse with certain positions or movements. Review of Systems Ten Systems: 10 systems reviewed and negative Constitutional: reports: Reviewed and negative Eyes: reports: Reviewed and negative Ears: reports: Reviewed and negative Nose: reports: Reviewed and negative Throat: reports: Reviewed and negative Cardiac: reports: Chest pain / pressure, Reviewed and negative Respiratory: reports: Reviewed and negative GI: reports: Reviewed and negative : reports: Reviewed and negative Skin: reports: Reviewed and negative Musculoskeletal: reports: Reviewed and negative Neurologic: reports: Reviewed and negative Psychiatric: reports: Reviewed and negative Endocrine: reports: Reviewed and negative Immunocompromised: reports: Reviewed and negative PD PAST MEDICAL HISTORY - Past Medical History Past Medical History: Yes Cardiovascular: None Respiratory: None Neuro: None Endocrine/Autoimmune: None GI: None PATTERN PAINTER: None : None HEENT: None Psych: None Musculoskeletal: Rheumatoid arthritis, Other Derm: None - Past Surgical History Past Surgical History: Yes Ortho: Other /PATTERN PAINTER: section HEENT: Tonsil/Adenoidectomy - Present Medications Home Medications: Ambulatory Orders Medication Instructions Recorded Confirmed No Known Home Medications 07/21/21 07/21/21 - Allergies Allergies/Adverse Reactions: Allergies Allergy/AdvReac Type Severity Reaction Status Date / Time No Known Drug Allergies Allergy Verified 07/21/21 16:21 - Social History Does the pt smoke?: No Smoking Status: Never smoker Does the pt drink ETOH?: Yes Does the pt have substance abuse?: No - Immunizations Immunizations are current?: Yes - POLST Patient has POLST: No PD ED PE NORMAL - Vitals Vital signs reviewed: Yes - General General: Alert and oriented X 3, No acute distress, Well developed/nourished - HEENT HEENT: Atraumatic, PERRL, EOMI, Moist mucous membranes - Neck Neck: Supple, no meningeal sign - Cardiac Cardiac: RRR, No murmur, Strong equal pulses - Respiratory Respiratory: No respiratory distress, Clear bilaterally - Abdomen Abdomen: Soft, Non tender, Non distended - Derm Derm: Normal color, Warm and dry, No rash - Extremities Extremities: No deformity, No edema, No calf tenderness / cord - Neuro Neuro: Alert and oriented X 3, programs director 2-12 intact, Normal speech - Psych Psych: Normal mood, Normal affect Results - Vitals Vitals: Vital Signs - 24 hr 07/21/21 07/21/21 16:22 17:40 Temperature 36 C L Heart Rate 92 86 Respiratory 18 18 Rate Blood Pressure 134/75 H 107/69 O2 Saturation 98 97 Oxygen O2 Source Room air - Rads (name of study) Chest x-ray Radiology: Final report received, EMP read indepedently, See rad report (Negative) PD MEDICAL DECISION MAKING - ED course Complexity details: reviewed results, re-evaluated patient, considered differential, d/w patient ED course: I discussed with the patient that she is extremely low risk for any of the serious causes of chest pain. EKG and chest x-ray both look good. We have discussed home management of symptoms, as well as the usual indications for return. Departure - Departure Disposition: 01 Home, Self Care Clinical Impression: Costochondritis Condition: Stable Instructions: ED Chest Pain Costochondritis Comments: Your EKG and chest x-ray look good. There is no evidence of an emergent cause of your chest pain, and you are very low risk for any of these anyway. You may take ibuprofen, which is the same as Advil or Motrin, as needed for the pain. You may take either 600 mg every 6 hours or 800 mg every 8 hours. Please follow-up with your primary doctor if you're not feeling better in a week
== END 2021-07-21 18:38 | disposition home or self-care (01) ==
LOC: ED 16:15
DX: M94.0 Chondrocostal junction syndrome [Tietze] (principal)
CPT/HCPCS: 93005; 99282; 99283

== ENCOUNTER 2021-09-05 15:41 | Emergency (ER) | payer OTHER ==
[2021-09-05 15:54] VITALS: BP 120/80
[2021-09-05] MEDS ORDERED: LIDOCAINE 1% 2 ML VIAL SUBQ STA (17:35)
--- NOTE | 2021-09-05 17:48 | ED Physician Documentation ---
History of Present Illness - Stated complaint Stated Complaint: SWOLLEN R KNEE - Chief complaint Chief Complaint: Ext Problem - Additonal information Additional information: 26-year-old female presents emergency department for a right knee effusion. She is hoping to have an arthrocentesis. Reports a history of juvenile rheumatoid arthritis. She typically has her knee drained every 3 to 6 months. The last time it was drained was about 3 months ago. At that time she did also receive a steroid injection into the joint. About 1 week ago she was doing a lot of squatting at work. Since then she has had some increase in the knee swelling. No fevers, no redness. She in fact has minimal pain and a normal gait. She is going snowmobiling this weekend and is hoping to have the knee drained before that. She was unable to schedule an appointment at her primary care office therefore she comes today to the ER. Review of Systems Constitutional: reports: Reviewed and negative Ears: reports: Reviewed and negative Throat: reports: Reviewed and negative Cardiac: reports: Reviewed and negative Respiratory: reports: Reviewed and negative Musculoskeletal: reports: Joint pain, Joint swelling PD PAST MEDICAL HISTORY - Past Medical History Cardiovascular: None Respiratory: None Neuro: None Endocrine/Autoimmune: None GI: None AUDIO VISUAL ARTS DIRECTOR: None : None HEENT: None Psych: None Musculoskeletal: Rheumatoid arthritis, Other Derm: None - Past Surgical History Past Surgical History: Yes Ortho: Other /AUDIO VISUAL ARTS DIRECTOR: section HEENT: Tonsil/Adenoidectomy - Present Medications Home Medications: Ambulatory Orders Medication Instructions Recorded Confirmed No Known Home Medications 07/21/21 07/21/21 - Allergies Allergies/Adverse Reactions: Allergies Allergy/AdvReac Type Severity Reaction Status Date / Time No Known Drug Allergies Allergy Verified 09/05/21 15:54 - Social History Does the pt smoke?: No Smoking Status: Never smoker Does the pt drink ETOH?: Yes Does the pt have substance abuse?: No - Immunizations Immunizations are current?: Yes - POLST Patient has POLST: No PD ED PE EXPANDED - Extremities Extremities: Right knee (Mild palpable swelling. No erythema. Normal flexion extension of the knee. Normal gait. No tenderness elicited with palpation medially or laterally. No laxity of the joint.) Results - Vitals Vitals: Vital Signs - 24 hr 09/05/21 15:47 Temperature 36.6 C Heart Rate 85 Respiratory 16 Rate Blood Pressure 120/80 O2 Saturation 98 Oxygen O2 Source Room air PD MEDICAL DECISION MAKING - ED course Complexity details: considered differential, d/w patient ED course: 26-year-old female presents to the emergency department for mild right knee swelling that began after doing squats at work last week. She does have a history of JRA and is hoping for an arthrocentesis today. On exam there is a mild effusion only. She has no pain or fevers. She has a normal gait. She also recently resumed taking prednisone through her primary care office. At this time she does not need an emergent arthrocentesis. We discussed the clinical indications to return for 1. I have encouraged her to wear a sleeve or compression bandage to help reduce the effusion. She is to continue the prednisone instituted by her primary care office. Otherwise emergent return precautions discussed. Departure - Departure Disposition: 01 Home, Self Care Clinical Impression: Knee effusion, right, History of juvenile rheumatoid arthritis Condition: Stable Record reviewed to determine appropriate education?: Yes Comments: Nemo lino were seen in the emergency department today for swelling around your right knee. This is called an effusion. It is most likely because of the flare due to your JRA. I know that today you were hoping for an arthrocentesis or for the need to be drained. However reassuringly it is only mildly swollen today. You are walking on the knee very well with not much pain. In addition to this you just resumed taking the prednisone. Today you do not need to have the knee emergently drained. I do encourage you to continue the course of prednisone. I also encourage you to use the roxie wrap or knee sleeve to help with compression. Stay off the knee is much as you can and that should include avoidance of snowmobiling this weekend. Continue to follow-up with your primary care doctor and/or your orthopedic doctors. They may elect to do a knee drainage or arthrocentesis in office. If you develop fevers, have knee redness, severe pain and cannot bear weight then please return to the ER for repeat evaluation.
[2021-09-05] MEDS: LIDOCAINE-MPF 1% 5 ML VIAL SUBQ STA (18:02)
[2021-09-05] MEDS: BUFFERED LIDOCAINE 10 ML SYRINGE SUBQ STA (18:02)
== END 2021-09-05 18:14 | disposition home or self-care (01) ==
LOC: ED 15:41
DX: M25.461 Effusion, right knee (principal); Z87.39 Personal history of other diseases of the musculoskeletal system and connective tissue
CPT/HCPCS: 99282; 99283

== ENCOUNTER 2021-09-30 11:30 | Outpatient (CLI) | payer OTHER ==
[2021-09-30 11:52] LABS: BILIRUBIN,URINE NEGATIVE (NEGATIVE); GLUCOSE, URINE (UA) NEGATIVE (NEGATIVE); KETONES,URINE (UA) NEGATIVE (NEGATIVE); LEUKOCYTE ESTERASE, URINE SMALL (NEGATIVE); NITRITE,URINE NEGATIVE (NEGATIVE); OCCULT BLOOD,URINE LARGE (NEGATIVE); PROTEIN,URINE 100 mg/dL (NEGATIVE); UROBILINOGEN,URINE 0.2 (NORMAL) E.U./dL (NORMAL)
[2021-09-30 12:08] LABS: CLARITY,URINE CLOUDY (CLEAR); WBC,URINE >25 /HPF (0-5)
[2021-09-30 12:09] LABS: BACTERIA,URINE Few /HPF (None Seen); RBC,URINE TNTC /HPF (0-5); SQUAMOUS EPITHELIAL CELL,UR MOD Squamous (<= Few)
[2021-09-30 17:12] LABS: BILIRUBIN,URINE NEGATIVE (NEGATIVE); GLUCOSE, URINE (UA) NEGATIVE (NEGATIVE); KETONES,URINE (UA) NEGATIVE (NEGATIVE); LEUKOCYTE ESTERASE, URINE TRACE (NEGATIVE); NITRITE,URINE POSITIVE (NEGATIVE); OCCULT BLOOD,URINE MODERATE (NEGATIVE); PH,URINE 5.5 PH (5.0-7.5); PROTEIN,URINE TRACE mg/dL (NEGATIVE); UROBILINOGEN,URINE 1 (NORMAL) E.U./dL (NORMAL)
[2021-09-30 17:19] LABS: CLARITY,URINE CLEAR (CLEAR)
[2021-09-30 17:20] LABS: BACTERIA,URINE Many /HPF (None Seen); SQUAMOUS EPITHELIAL CELL,UR FEW Squamous (<= Few); WBC,URINE >25 /HPF (0-5)
== END 2021-09-30 11:31 | disposition home or self-care (01) ==
LOC: LAB 11:30
PROVIDERS: ATTEND Obstetrics & Gynecology
DX: R30.0 Dysuria (principal)
CPT/HCPCS: 81001; 87086

== ENCOUNTER 2021-10-01 15:26 | Outpatient (CLI) | payer OTHER ==
[2021-10-01 18:24] LABS: BILIRUBIN,URINE NEGATIVE (NEGATIVE); GLUCOSE, URINE (UA) NEGATIVE (NEGATIVE); KETONES,URINE (UA) NEGATIVE (NEGATIVE); LEUKOCYTE ESTERASE, URINE TRACE (NEGATIVE); NITRITE,URINE POSITIVE (NEGATIVE); OCCULT BLOOD,URINE SMALL (NEGATIVE); PROTEIN,URINE NEGATIVE (NEGATIVE); UROBILINOGEN,URINE 1 (NORMAL) E.U./dL (NORMAL)
[2021-10-01 18:56] LABS: CLARITY,URINE HAZY (CLEAR)
[2021-10-01 18:57] LABS: BACTERIA,URINE Few /HPF (None Seen); SQUAMOUS EPITHELIAL CELL,UR FEW Squamous (<= Few); WBC,URINE >25 /HPF (0-5)
== END 2021-10-01 15:27 | disposition home or self-care (01) ==
LOC: LAB.N 15:26
PROVIDERS: ATTEND Obstetrics & Gynecology
DX: R30.0 Dysuria (principal)
CPT/HCPCS: 81001; 81003; 87086